=== PATIENT | male | born 1955 ===

== ENCOUNTER 2020-08-10 20:23 | Inpatient (IN) ==
[2020-08-10] MEDS ORDERED: GLUCAGON 1 MG VIAL IM PRN (23:07)
[2020-08-10] MEDS ORDERED: DEXTROSE 50% 25 GM/50 ML VIAL IV PRN ×2 (23:07→23:12)
[2020-08-10] MEDS ORDERED: ONDANSETRON 4 MG/2 ML VIAL IV PRN (23:12)
[2020-08-10 23:40] LABS: Basophils % 0.2 % (0.0-0.8); Eosinophils # 0.1 10*3/uL (0.0-0.87); Eosinophils % 0.8 % (0.00-10.9); Hematocrit 35.1 VOL% (42.0-52.0); Hemoglobin 11.8 GM/DL (14.0-18.0); Immature Granulocytes % 1.1 %; Immature Granulocytes Absolute 0.07 #; Lymphocytes % 15.2 % (21.2-54.2); Mean Corpuscular HGB Conc 33.6 GM/DL (32-36); Mean Corpuscular Volume 86.7 FL (87-102); Mean Platelet Volume 8.8 FL (9.6-12.0); Monocytes % 4.1 % (1.7-12.7); Neutrophils % 78.6 % (38.7-73.9); Platelet Count 302 T/CUMM (130-400); Red Blood Count 4.05 MC/CUMM (3.8-5.5); Red Cell Distribution Width 12.3 % (9.3-17.3); White Blood Count 6.3 T/CUMM (4-12)
[2020-08-11] LABS: Albumin 2.4 G/DL (3.4-5.0); Bilirubin,Total 0.4 MG/DL (0.2-1.0); Osmolality,Calculated 276.4 MOS/KG (273-304); Total Protein 7.4 G/DL (6.4-8.3)
[2020-08-11] MEDS ORDERED: MELATONIN 3 MG TABLET PO PRN (00:53)
[2020-08-11] MEDS ORDERED: INSULIN GLARGINE 100 UNIT/ML SUBCUT SCH ×3 (01:00→14:50)
[2020-08-11 01:13] LABS: Troponin I < 0.015 NG/ML (0.00-0.045)
[2020-08-11] MEDS: ALBUTEROL INHALER 18 GM INH SCH ×4 (01:35→19:27)
[2020-08-11] MEDS: ENOXAPARIN 40 MG/0.4 ML SYRINGE SUBCUT SCH ×2 (01:47→23:21)
[2020-08-11] MEDS: ACETAMINOPHEN 325 MG TABLET PO PRN ×2 (01:48→11:53)
[2020-08-11] MEDS: guaiFENesin 200 MG/10 ML UDCUP PO PRN ×2 (01:48→09:50)
[2020-08-11 06:22] LABS: Albumin 2.3 G/DL (3.4-5.0); Bilirubin,Total 0.4 MG/DL (0.2-1.0); Calcium 7.8 MG/DL (8.5-10.1); Osmolality,Calculated 271.4 MOS/KG (273-304); Total Protein 7.3 G/DL (6.4-8.3)
[2020-08-11 06:31] LABS: Basophils % 0.3 % (0.0-0.8); Eosinophils # 0.1 10*3/uL (0.0-0.87); Eosinophils % 1.1 % (0.00-10.9); Hematocrit 34.5 VOL% (42.0-52.0); Hemoglobin 11.8 GM/DL (14.0-18.0); Immature Granulocytes % 1.5 %; Lymphocytes # 1.2 10*3/uL (1.4-4.0); Lymphocytes % 17.3 % (21.2-54.2); Mean Corpuscular HGB Conc 34.2 GM/DL (32-36); Mean Corpuscular Volume 86.5 FL (87-102); Mean Platelet Volume 9.1 FL (9.6-12.0); Monocytes % 3.2 % (1.7-12.7); NRBC # 0.02 10*3/uL; Neutrophils % 76.6 % (38.7-73.9); Platelet Count 328 T/CUMM (130-400); Red Blood Count 3.99 MC/CUMM (3.8-5.5); Red Cell Distribution Width 12.3 % (9.3-17.3); White Blood Count 6.7 T/CUMM (4-12)
[2020-08-11 08:38] LABS: Troponin I < 0.015 NG/ML (0.00-0.045)
[2020-08-11] MEDS: CALCIUM (CARBONATE)/VITAMIN D 600 MG-400 UNIT TABLET PO SCH ×2 (09:41→21:17)
[2020-08-11] MEDS: ASPIRIN EC 81 MG TABLET PO SCH (09:41)
[2020-08-11] MEDS: DEXAMETHASONE 4 MG/1 ML VIAL IV SCH (09:41)
[2020-08-11] MEDS: INSULIN LISPRO 100 UNIT/ML SUBCUT SCH ×4 (09:41→21:17)
[2020-08-11] MEDS: GABAPENTIN 300 MG CAPSULE PO SCH (09:41)
[2020-08-11] MEDS: ASCORBIC ACID 500 MG TABLET PO SCH (09:42)
[2020-08-11] MEDS: amLODIPine 5 MG TABLET PO SCH (09:42)
[2020-08-11] MEDS: ZINC SULFATE 220 MG CAPSULE PO SCH (09:42)
[2020-08-11] MEDS: PANTOPRAZOLE 40 MG TABLET PO SCH (09:42)
[2020-08-11] MEDS: CETIRIZINE 10 MG TABLET PO SCH (09:42)
[2020-08-11] MEDS ORDERED: REMDESIVIR 200 MG in SODIUM CHLORIDE 0.9% 210 ML IV ONE (13:00)
[2020-08-11 14:36] LABS: Troponin I < 0.015 NG/ML (0.00-0.045)
[2020-08-11] MEDS: SIMVASTATIN 20 MG TABLET PO SCH (21:17)
[2020-08-12] MEDS: ALBUTEROL INHALER 18 GM INH SCH ×4 (00:41→19:10)
[2020-08-12 06:30] LABS: Basophils % 0.1 % (0.0-0.8); Hematocrit 35.3 VOL% (42.0-52.0); Hemoglobin 12.1 GM/DL (14.0-18.0); Immature Granulocytes % 1.8 %; Immature Granulocytes Absolute 0.16 #; Lymphocytes # 1.3 10*3/uL (1.4-4.0); Lymphocytes % 14.4 % (21.2-54.2); Mean Corpuscular HGB Conc 34.3 GM/DL (32-36); Mean Corpuscular Volume 85.9 FL (87-102); Mean Platelet Volume 9.2 FL (9.6-12.0); Monocytes % 7.1 % (1.7-12.7); NRBC # 0.02 10*3/uL; Neutrophils % 76.6 % (38.7-73.9); Platelet Count 393 T/CUMM (130-400); Red Blood Count 4.11 MC/CUMM (3.8-5.5); Red Cell Distribution Width 12.3 % (9.3-17.3); White Blood Count 8.7 T/CUMM (4-12)
[2020-08-12 06:46] LABS: Calcium 7.8 MG/DL (8.5-10.1); Osmolality,Calculated 280.1 MOS/KG (273-304)
[2020-08-12 06:50] LABS: Band Neutrophils 2 % (0-10); Lymphocytes 13 % (20-55); Risk Ratio 4.74; Segmented Neutrophils 78 % (50-85); Total Cells Counted 100; VLDL CHOLESTEROL 25.2 MG/DL
[2020-08-12 06:51] LABS: Platelet Estimate Increased
[2020-08-12 06:52] LABS: Microcytosis 1+; Polychromasia Slight
[2020-08-12] MEDS: ASPIRIN EC 81 MG TABLET PO SCH (08:27)
[2020-08-12] MEDS: PANTOPRAZOLE 40 MG TABLET PO SCH (08:27)
[2020-08-12] MEDS: GABAPENTIN 300 MG CAPSULE PO SCH (08:27)
[2020-08-12] MEDS: ASCORBIC ACID 500 MG TABLET PO SCH (08:27)
[2020-08-12] MEDS: CETIRIZINE 10 MG TABLET PO SCH (08:27)
[2020-08-12] MEDS: amLODIPine 5 MG TABLET PO SCH (08:28)
[2020-08-12] MEDS: INSULIN LISPRO 100 UNIT/ML SUBCUT SCH ×4 (08:28→21:26)
[2020-08-12] MEDS: DEXAMETHASONE 4 MG/1 ML VIAL IV SCH (08:29)
[2020-08-12] MEDS: CALCIUM (CARBONATE)/VITAMIN D 600 MG-400 UNIT TABLET PO SCH ×2 (09:27→21:26)
[2020-08-12] MEDS: REMDESIVIR 100 MG in SODIUM CHLORIDE 0.9% 230 ML IV SCH (09:27)
[2020-08-12] MEDS: INSULIN GLARGINE 100 UNIT/ML SUBCUT SCH (21:26)
[2020-08-12] MEDS: SIMVASTATIN 20 MG TABLET PO SCH (21:27)
[2020-08-12] MEDS: ENOXAPARIN 40 MG/0.4 ML SYRINGE SUBCUT SCH (23:32)
[2020-08-13] MEDS: ALBUTEROL INHALER 18 GM INH SCH ×4 (00:55→18:15)
[2020-08-13] MEDS: CALCIUM (CARBONATE)/VITAMIN D 600 MG-400 UNIT TABLET PO SCH ×2 (08:57→21:26)
[2020-08-13] MEDS: ASCORBIC ACID 500 MG TABLET PO SCH (08:57)
[2020-08-13] MEDS: PANTOPRAZOLE 40 MG TABLET PO SCH (08:57)
[2020-08-13] MEDS: ASPIRIN EC 81 MG TABLET PO SCH (08:57)
[2020-08-13] MEDS: CETIRIZINE 10 MG TABLET PO SCH (08:57)
[2020-08-13] MEDS: GABAPENTIN 300 MG CAPSULE PO SCH (08:57)
[2020-08-13] MEDS: amLODIPine 5 MG TABLET PO SCH (08:57)
[2020-08-13] MEDS: ZINC SULFATE 220 MG CAPSULE PO SCH (08:57)
[2020-08-13] MEDS: INSULIN LISPRO 100 UNIT/ML SUBCUT SCH ×4 (08:58→21:28)
[2020-08-13] MEDS: DEXAMETHASONE 4 MG/1 ML VIAL IV SCH (08:58)
[2020-08-13] MEDS: REMDESIVIR 100 MG in SODIUM CHLORIDE 0.9% 230 ML IV SCH (09:48)
[2020-08-13] MEDS: glipiZIDE 10 MG TABLET PO SCH (21:26)
[2020-08-13] MEDS: SIMVASTATIN 20 MG TABLET PO SCH (21:26)
[2020-08-13] MEDS: INSULIN GLARGINE 100 UNIT/ML SUBCUT SCH (21:28)
[2020-08-13] MEDS: ENOXAPARIN 40 MG/0.4 ML SYRINGE SUBCUT SCH (23:03)
[2020-08-14] MEDS: ALBUTEROL INHALER 18 GM INH SCH ×4 (00:34→20:51)
[2020-08-14 05:43] LABS: Basophils % 0.2 % (0.0-0.8); Hematocrit 34.5 VOL% (42.0-52.0); Hemoglobin 11.6 GM/DL (14.0-18.0); Immature Granulocytes % 2.4 %; Immature Granulocytes Absolute 0.26 #; Lymphocytes # 1.7 10*3/uL (1.4-4.0); Lymphocytes % 16.1 % (21.2-54.2); Mean Corpuscular HGB Conc 33.6 GM/DL (32-36); Mean Corpuscular Volume 86.7 FL (87-102); Mean Platelet Volume 9.3 FL (9.6-12.0); Monocytes % 7.8 % (1.7-12.7); NRBC # 0.02 10*3/uL; Neutrophils % 73.5 % (38.7-73.9); Platelet Count 493 T/CUMM (130-400); Red Blood Count 3.98 MC/CUMM (3.8-5.5); Red Cell Distribution Width 12.4 % (9.3-17.3); White Blood Count 10.6 T/CUMM (4-12)
[2020-08-14 06:08] LABS: Calcium 8.5 MG/DL (8.5-10.1); Osmolality,Calculated 279.2 MOS/KG (273-304)
[2020-08-14] MEDS: INSULIN LISPRO 100 UNIT/ML SUBCUT SCH ×5 (08:26→20:53)
[2020-08-14] MEDS: ASPIRIN EC 81 MG TABLET PO SCH (08:27)
[2020-08-14] MEDS: CALCIUM (CARBONATE)/VITAMIN D 600 MG-400 UNIT TABLET PO SCH ×2 (08:28→20:52)
[2020-08-14] MEDS: glipiZIDE 10 MG TABLET PO SCH ×2 (08:28→20:52)
[2020-08-14] MEDS: GABAPENTIN 300 MG CAPSULE PO SCH (08:28)
[2020-08-14] MEDS: DEXAMETHASONE 4 MG/1 ML VIAL IV SCH (08:28)
[2020-08-14] MEDS: MULTIVITAMIN (CENTRUM) TABLET PO SCH (08:28)
[2020-08-14] MEDS: amLODIPine 5 MG TABLET PO SCH (08:29)
[2020-08-14] MEDS: ASCORBIC ACID 500 MG TABLET PO SCH (08:29)
[2020-08-14] MEDS: PANTOPRAZOLE 40 MG TABLET PO SCH (08:29)
[2020-08-14] MEDS: CETIRIZINE 10 MG TABLET PO SCH (08:29)
[2020-08-14] MEDS: REMDESIVIR 100 MG in SODIUM CHLORIDE 0.9% 230 ML IV SCH (09:12)
[2020-08-14] MEDS: INSULIN GLARGINE 100 UNIT/ML SUBCUT SCH (20:52)
[2020-08-14] MEDS: SIMVASTATIN 20 MG TABLET PO SCH (20:53)
[2020-08-14] MEDS: ENOXAPARIN 40 MG/0.4 ML SYRINGE SUBCUT SCH (23:00)
[2020-08-15 03:02] LABS: Allen Test Positive; Pt O2 Delivery Device Other
[2020-08-15 03:03] LABS: ABG Base Excess -0.1 MMOL/L (-2.5-2.5); ABG HCO3 23.3 MMOL/L (20-26); ABG Oxygen Saturation 93.4 % (95-100); ABG PCO2 33.9 MM HG (35-48); ABG PH 7.455 (7.35-7.45); ABG PO2 67.1 MM HG (80-95); ABG TCO2 24.3 MMOL/L (23-27)
[2020-08-15] MEDS: ALBUTEROL INHALER 18 GM INH SCH ×4 (07:01→20:10)
[2020-08-15] MEDS: CALCIUM (CARBONATE)/VITAMIN D 600 MG-400 UNIT TABLET PO SCH ×2 (08:57→22:36)
[2020-08-15] MEDS: glipiZIDE 10 MG TABLET PO SCH ×2 (08:57→22:38)
[2020-08-15] MEDS: ZINC SULFATE 220 MG CAPSULE PO SCH (08:57)
[2020-08-15] MEDS: MULTIVITAMIN (CENTRUM) TABLET PO SCH (08:57)
[2020-08-15] MEDS: GABAPENTIN 300 MG CAPSULE PO SCH (08:57)
[2020-08-15] MEDS: CETIRIZINE 10 MG TABLET PO SCH (08:58)
[2020-08-15] MEDS: ASPIRIN EC 81 MG TABLET PO SCH (08:58)
[2020-08-15] MEDS: ASCORBIC ACID 500 MG TABLET PO SCH (08:58)
[2020-08-15] MEDS: PANTOPRAZOLE 40 MG TABLET PO SCH (08:58)
[2020-08-15] MEDS: DEXAMETHASONE 4 MG/1 ML VIAL IV SCH (08:58)
[2020-08-15] MEDS: amLODIPine 5 MG TABLET PO SCH (08:58)
[2020-08-15] MEDS: INSULIN LISPRO 100 UNIT/ML SUBCUT SCH ×4 (09:06→22:38)
[2020-08-15] MEDS: REMDESIVIR 100 MG in SODIUM CHLORIDE 0.9% 230 ML IV SCH (09:52)
[2020-08-15] MEDS ORDERED: SODIUM CHLORIDE 0.9% 1,000 ML IV PRN (10:35)
[2020-08-15] MEDS: SIMVASTATIN 20 MG TABLET PO SCH (22:37)
[2020-08-15] MEDS: INSULIN GLARGINE 100 UNIT/ML SUBCUT SCH (22:43)
[2020-08-15] MEDS: ENOXAPARIN 40 MG/0.4 ML SYRINGE SUBCUT SCH (22:49)
[2020-08-16] MEDS: ALBUTEROL INHALER 18 GM INH SCH ×4 (00:24→19:08)
[2020-08-16 06:10] LABS: Basophils % 0.2 % (0.0-0.8); Eosinophils # 0.1 10*3/uL (0.0-0.87); Eosinophils % 0.5 % (0.00-10.9); Hematocrit 36.3 VOL% (42.0-52.0); Hemoglobin 12.2 GM/DL (14.0-18.0); Immature Granulocytes Absolute 0.44 #; Lymphocytes # 2.4 10*3/uL (1.4-4.0); Lymphocytes % 21.2 % (21.2-54.2); Mean Corpuscular HGB Conc 33.6 GM/DL (32-36); Mean Corpuscular Volume 87.3 FL (87-102); Mean Platelet Volume 9.3 FL (9.6-12.0); Monocytes % 8.6 % (1.7-12.7); Neutrophils % 65.5 % (38.7-73.9); Platelet Count 553 T/CUMM (130-400); Red Blood Count 4.16 MC/CUMM (3.8-5.5); Red Cell Distribution Width 12.7 % (9.3-17.3); White Blood Count 11.1 T/CUMM (4-12)
[2020-08-16 06:34] LABS: Calcium 8.5 MG/DL (8.5-10.1); Ferritin 472.7 ng/ml (26-388); Osmolality,Calculated 278.8 MOS/KG (273-304)
[2020-08-16] MEDS: MULTIVITAMIN (CENTRUM) TABLET PO SCH (10:08)
[2020-08-16] MEDS: amLODIPine 5 MG TABLET PO SCH (10:08)
[2020-08-16] MEDS: ASCORBIC ACID 500 MG TABLET PO SCH (10:08)
[2020-08-16] MEDS: ASPIRIN EC 81 MG TABLET PO SCH (10:08)
[2020-08-16] MEDS: glipiZIDE 10 MG TABLET PO SCH ×2 (10:09→21:40)
[2020-08-16] MEDS: PANTOPRAZOLE 40 MG TABLET PO SCH (10:09)
[2020-08-16] MEDS: DEXAMETHASONE 4 MG/1 ML VIAL IV SCH (10:10)
[2020-08-16] MEDS: GABAPENTIN 300 MG CAPSULE PO SCH (10:10)
[2020-08-16] MEDS: CALCIUM (CARBONATE)/VITAMIN D 600 MG-400 UNIT TABLET PO SCH ×2 (10:10→21:39)
[2020-08-16] MEDS: CETIRIZINE 10 MG TABLET PO SCH (10:10)
[2020-08-16] MEDS: INSULIN LISPRO 100 UNIT/ML SUBCUT SCH ×4 (10:11→21:42)
[2020-08-16] MEDS: SIMVASTATIN 20 MG TABLET PO SCH (21:41)
[2020-08-16] MEDS: INSULIN GLARGINE 100 UNIT/ML SUBCUT SCH (21:43)
[2020-08-16] MEDS: ENOXAPARIN 40 MG/0.4 ML SYRINGE SUBCUT SCH (22:49)
[2020-08-17] MEDS: ALBUTEROL INHALER 18 GM INH SCH ×3 (06:25→12:31)
[2020-08-17] MEDS: INSULIN LISPRO 100 UNIT/ML SUBCUT SCH ×3 (08:00→16:26)
[2020-08-17] MEDS: amLODIPine 5 MG TABLET PO SCH (10:26)
[2020-08-17] MEDS: ZINC SULFATE 220 MG CAPSULE PO SCH (10:26)
[2020-08-17] MEDS: MULTIVITAMIN (CENTRUM) TABLET PO SCH (10:26)
[2020-08-17] MEDS: GABAPENTIN 300 MG CAPSULE PO SCH (10:26)
[2020-08-17] MEDS: DEXAMETHASONE 4 MG/1 ML VIAL IV SCH (10:27)
[2020-08-17] MEDS: ASCORBIC ACID 500 MG TABLET PO SCH (10:27)
[2020-08-17] MEDS: CETIRIZINE 10 MG TABLET PO SCH (10:27)
[2020-08-17] MEDS: PANTOPRAZOLE 40 MG TABLET PO SCH (10:27)
[2020-08-17] MEDS: CALCIUM (CARBONATE)/VITAMIN D 600 MG-400 UNIT TABLET PO SCH (10:27)
[2020-08-17] MEDS: ASPIRIN EC 81 MG TABLET PO SCH (10:27)
[2020-08-17] MEDS: glipiZIDE 10 MG TABLET PO SCH (10:27)
[2020-08-17 16:34] VITALS: BP 120/68
[2020-08-20] MEDS ORDERED: NON-FORMULARY MEDICATION (Alendronate 70 MG tablet) PO SCH (07:30)
[2020-08-20] MEDS ORDERED: ERGOCALCIFEROL 50,000 UNIT CAPSULE PO SCH (09:00)
== END 2020-08-17 17:09 | disposition home or self-care (01) | DRG 177 ==
LOC: N.2E 22:38 → SUATTDRO 22:38
PROVIDERS: ADMIT Internal Medicine; ATTEND Internal Medicine